=== PATIENT | male | born 1970 | race Caucasian/White ===

== ENCOUNTER 2017-06-03 08:16 | Inpatient (IN) | payer BC, OTHER ==
[~2017-06-03] VITALS: Ht 172.7 cm; Wt 68.0 kg
--- NOTE | 2017-06-03 12:10 | NUR ---
PRE-ASSESSMENT: Pre-Assessment done at intake office, client is a/o to name, place, and situation, he presents with flat affect, anxious mood, smell of alcohol on breath, client stated, "I just had two beers , maybe like 4-5 hours ago." client noted with dry lips, pale skin, hollow cheeks, client stated, "I have lost like 10 pounds over a month, I am just not hungry." Client has difficulty concentrating, he reports nausea, abdominal cramps, chills, and feeling of uneasiness. Client avoids eye contact, soft speech, he has difficulty staying still, keeps crossing and uncrossing his legs. T 98, RR 18, BP 120/79, HR 89, spO2 @ 98% on RA, Pain 0/10. He is fully ambulatory. He denies any allergies; he denies any withdrawal-induced seizure, but reports a hx of withdrawal-induced delirium (05/30/17). PMH: Anxiety, Depression, Osteonecrosis of left hip (2010), Hypertension (2011). Past Surgery hx: Tonsillectomy, Appendectomy. Medications taken at home Amlodipine Besylate 5mg PO daily Protocol regarding vitals Q4H, UDS, blood work, and controlled substances discuss with client, he verbalized understanding. PCP: Wild Cain
--- NOTE | 2017-06-03 12:21 | NUR ---
Admissions Note 47 year old male admitted to [facility] for withdrawal from alcohol. Client stated, "I am losing my marriage." Client is oriented to unit, educated about protocols and how to work TV and call light in his room. Weight: 150 pounds. Height: 5'8" CIWA: 19 Client is pacing in his room, combing his hair with both hands, clammy skin. Skin intact to touch. Bilateral lung clear on auscultation, abdomen soft, non-tender, no edema noted. Clients voice is soft, he avoids eye contact. Client has NKA. Regular diet ordered. Full code status ordered. Client denies Substance history First time used at 15 y/o, he now consumes alcohol (beer) 6-12 cans (12oz) PO daily for the past 28 years, last used 2 (12oz) cans of beer, 4-5 hours prior to admission. Marijuana 0.5gm smoked for the past 32 years last time used 06/03/17, a couple of puffs. Client denies any history of seizures, but reports history of withdrawal-induced delirium. LBM was 06/02/17, medium/brown/soft. He refuses PNA/FLU vaccine stating, "I don't believe they work." He gives verbal consent for HIV. Client states that he lives with his and 14 year-old daughter. He reports a prior treatment four year ago, he can not remember the name of the place, but he was there for 5 days. He did not go into treatment after that and started drinking right after discharge, client stated, "Maybe, that was my mistake, not going into a 30 day treatment." His longest period of sobriety is for 5 days on April 2017. Client denies ant hx of suicide attempt or 5150. Dr Esquivel notified of admission. Urine not collected yet. All safety measures instituted. Univeral precaution. Call light within reach. Will continue to monitor.
[2017-06-03] MEDS ORDERED: LOPERAMIDE HCL 2 MG CAPSULE PO PRN ×2 (12:30)
[2017-06-03] MEDS ORDERED: MAGNESIUM HYDROXIDE 30 ML LIQUID UDC PO PRN (12:30)
[2017-06-03] MEDS ORDERED: IBUPROFEN 400 MG TABLET PO PRN (12:30)
[2017-06-03] MEDS ORDERED: ONDANSETRON ODT 4 MG TAB.RAPDIS SL PRN (12:30)
[2017-06-03] MEDS ORDERED: MIRALAX 17 GM POWD.PACK PO PRN (12:30)
[2017-06-03] MEDS ORDERED: LORAZEPAM 2 MG/1 ML VIAL IM PRN (12:30)
[2017-06-03] MEDS ORDERED: MAG HYDROX/AL HYDROX/SIMETH 30 ML LIQUID UDC PO PRN (12:30)
[2017-06-03] MEDS ORDERED: ONDANSETRON 4 MG/2 ML VIAL IM PRN (12:30)
[2017-06-03] MEDS ORDERED: ACETAMINOPHEN 325 MG TABLET PO PRN (12:30)
[2017-06-03] MEDS ORDERED: LORAZEPAM 1 MG TABLET PO PRN ×2 (12:30)
[2017-06-03] MEDS ORDERED: AMLO5TAB2 PO (12:46)
[2017-06-03] MEDS ORDERED: THIAMINE HCL 200 MG/2 ML VIAL IM ONE (12:49)
[2017-06-03 13:03] LABS: BASOPHILS # (AUTO) 0.1 K/uL (0.0-8.0); BASOPHILS % (AUTO) 0.9 % (0.0-2.0); EOSINOPHILS # (AUTO) 0.1 K/uL (0.0-0.7); HEMATOCRIT 44.2 % (36.7-47.1); HEMOGLOBIN 15.2 g/dL (12.5-16.3); LYMPHOCYTES # (AUTO) 2.7 K/uL (20.0-40.0); LYMPHOCYTES % (AUTO) 40.1 % (20.5-51.5); MEAN CORPUSCULAR HEMOGLOBIN 30.4 uug (23.8-33.4); MEAN CORPUSCULAR HGB CONC 35 g/dL (32.5-36.3); MEAN CORPUSCULAR VOLUME 88.2 fL (73.0-96.2); MONOCYTES # (AUTO) 0.5 K/uL (2.0-10.0); MONOCYTES % (AUTO) 7.6 % (0.0-11.0); NEUTROPHILS # (AUTO) 3.4 K/uL (1.8-8.9); NEUTROPHILS % (AUTO) 50.4 % (38.5-71.5); PLATELET COUNT (AUTO) 209 K/uL (152-348); RED BLOOD CELL COUNT(AUTO) 5.01 MIL/uL (4.06-5.63); WHITE BLOOD COUNT (AUTO) 6.6 K/uL (3.6-10.2)
[2017-06-03] MEDS: LORAZEPAM 1 MG TABLET PO SCH ×3 (13:16→21:09)
[2017-06-03 13:30] LABS: BILIRUBIN,TOTAL 0.2 mg/dL (0.2-1.0); CREATININE 0.8 mg/dL (0.6-1.3); MAGNESIUM 2.2 mg/dL (1.8-2.4); POTASSIUM 3.7 mmol/L (3.5-5.1)
[2017-06-03 16:39] LABS: *AMPHETAMINE, URINE NEGATIVE (NEGATIVE); *BARBITURATE, URINE NEGATIVE (NEGATIVE); *CANNABINOID, URINE POSITIVE (NEGATIVE); *COCCAINE, URINE NEGATIVE (NEGATIVE); *OPIATE, URINE NEGATIVE (NEGATIVE); *PHENCYCLIDINE SCREEN,URINE NEGATIVE (NEGATIVE)
[2017-06-03 16:58] VITALS: BP 135/95
--- NOTE | 2017-06-03 19:09 | NUR ---
END OF SHIFT Endorsed client to incoming nurse, client is a/o x 4, he is not compliant with group therapy due to withdrawal symptoms. Client remains isolated in his room for the most part, he continues to present with anxious mood, flat affect, nausea, tremors, flushed face, sweats, cold/chills, decreased appetite, and fatigue. Client consumed ~ 50 % of meal. Adequate PO fluid intake 855mL, void x 2, stool x1. Last CIWA 19 @ 1600. Call light within reach.
--- NOTE | 2017-06-03 19:30 | NUR ---
START OF SHIFT Received 47 year old male patient for ETOH withdrawal. Pt is alert and oriented x4. He started his 5 day Ativan taper today and tolerating well. Pt is noted with anxiety,irritability, restlessness, agitation, fine tremors, sensitivity to light and sound, flushed face, chills and sweats. Per endorsement, he did not receive or request PRN medications. Last CIWA:19 at 1700. Breathing is even and unlabored, safety measures in place. Will continue to monitor.
[2017-06-03 20:00] VITALS: BP 127/87
[2017-06-03 23:45] VITALS: BP 151/97
[2017-06-03] MEDS: CLONIDINE HCL 0.1 MG TABLET PO PRN (23:50)
--- NOTE | 2017-06-03 23:50 | NUR ---
PRN CLONIDINE Pt noted with increased BP of 151/97, HR:78. PRN Clonidine administered as ordered. Breathing even and unlabored, safety measures in place. Will continue to monitor effectiveness.
[2017-06-04 00:50] VITALS: BP 132/85
--- NOTE | 2017-06-04 00:50 | NUR ---
PRN REASSESSMENT Medication effective. BP:132/85. Will continue to monitor. Addendum: 06/04/17 at 0710 by ASHLY HIGHTOWER RN HR:75
[2017-06-04 04:00] VITALS: BP 113/76
--- NOTE | 2017-06-04 07:07 | NUR ---
END OF SHIFT Pt is a 47 year old male patient for ETOH withdrawal. He remains alert and oriented x4. He continues on a 5 day Ativan taper today and is tolerating well. Pt was noted with anxiety, restlessness, agitation, fine tremors, flushed face, chills and sweats. He received PRN Clonidine at 2350 for increased BP. Medication was effective. He slept a total of 7 hrs, Intake:796mL, Void: x1, BM:0, CIWA: 10 at 0000. Breathing is even and unlabored, safety measures in place. Will endorse to AM shift.
--- NOTE | 2017-06-04 07:35 | NUR ---
START OF SHIFT Endorse rdvc from ongoing nurse, client is a/o to name, place, and situation. Client presents with anxious mood, flat affect, flushed face, dry lips, unshaven, red, teary eyes, runny nose, tremors, obvious sweating on forehead. He reports nausea, headache, stomach cramps, no appetite, panic feeling, light and noise bothers him, pins and needle feeling on legs. Encourage client to increase PO fluid intake as tolerated for rehydration and to facilitate detox. Encourage client to attend group therapy to learn skills to maintain sober. Client is on second of 5 day Ativan taper. Last CIWA 10 @ 2400. PRN Clonidine for BP 151/97, decreased to 132/85. Seizure precautions rendered. Call light within reach.
[2017-06-04 08:11] LABS: HEPATITIS B SURFACE AG Negative (Negative)
[2017-06-04 08:32] VITALS: BP 107/77
[2017-06-04] MEDS: MULTIVITAMINS,THERAPEUTIC TABLET PO SCH (08:42)
[2017-06-04] MEDS: LORAZEPAM 1 MG TABLET PO SCH ×2 (08:42→12:27)
[2017-06-04] MEDS: FOLIC ACID 1 MG TABLET PO SCH (08:43)
[2017-06-04] MEDS: THIAMINE HCL 100 MG TABLET PO SCH (08:43)
[2017-06-04] MEDS: AMLODIPINE 5MG PO SCH (08:44)
[2017-06-04] MEDS ORDERED: TUBERCULIN,PURIF.PROT.DERIV. 5 TU/0.1 ML TEST ID ONE (09:00)
[2017-06-04 12:22] VITALS: BP 120/82
[2017-06-04 16:50] VITALS: BP 128/98
[2017-06-04] MEDS ORDERED: LORAZEPAM 1 MG TABLET PO SCH ×2 (17:00→21:00)
--- NOTE | 2017-06-04 17:00 | NUR ---
called to inquiry about current state of , and to let him know that she loves him. Client notified.
--- NOTE | 2017-06-04 19:15 | NUR ---
END OF SHIFT Endorse client to incoming nurse, client is a/o x 4, Client continues to present with anxious mood, flat affect, flushed face, tremors, headache, stomach cramps, no appetite, panic feeling, and restless legs. Client consumes ~50 of meals. Adequate PO fluid intake 2191mL, void x 5, stool x 1. Last CIWA 17 @ 1600. Seizure precautions rendered. Call light within reach.
--- NOTE | 2017-06-04 19:15 | NUR ---
START OF SHIFT NOTE: Endorsed a 47 year old male presented for ETOH/"Beer" withdrawal, continues 5 day Ativan taper, which tolerated well. Patient is alert and oriented x4, resting on the bed. Patient appears unwashed , uncombed hair, and undernourished. Patient is sad with poor eye contact. Last CIWA=17 @1600: Patient presented with anxiety, agitation, tremors, restlessness, nervousness, sweats, headache, panic feelings, stomach cramps, flushed face, and fatigue. No PRN Medications given throughout the day per day shift nurse report. Patient encouraged to express his feelings. Encouraged to fluids intake as tolerated. All needs met. Safety measures in place: Call light within reach, bed is locked and in lowest position, padded bed rails up bilaterally. Patient endorsed by outgoing day shift nurse. Report received. Will continue to monitor closely.
[2017-06-04 20:00] VITALS: BP 137/90
[2017-06-05] VITALS: BP 114/86
[2017-06-05 04:00] VITALS: BP 103/74
--- NOTE | 2017-06-05 06:57 | NUR ---
END OF SHIFT NOTE: A 47 year old male presented for Alcohol(Beer) withdrawal, continues 5 Day Ativan Taper. He is tolerated well. Patient remains compliant with treatment, medications, and diet regime. Patient noted disheveled, unkempt,and uncombed. His clothes are dirty and patient refused to change them. The patient was educated in safety and hygiene care. The patient was encouraged to independently perform hygiene care. CIWA=12 @2000, CIWA=9 @0000. Last CIWA=6@0400. Patient presented with anxiety, agitation, c/o restlessness, fatigue, abdominal cramps, sweating, and tremors. No PRN Medications given during shift. Calm and safety environment with minimized noises was provided. Patient slept 9 hours, intake 1,350 ml, voided x3. Calm environment and minimized noises was provided. All needs met. Safety measures in the place: Call light within reach, bed in the lowest position and locked, padded rails up x2. Patient endorsed to day shift nurse.
--- NOTE | 2017-06-05 07:44 | NUR ---
START OF SHIFT PT IS A 47 Y/O M ADMITTED FOR ETOH W/D. PT IS ON A 5 DAY ATIVAN TAPER. LAST CIWA 6. RECEIVED PT LAYING IN BED, DISHEVELED, A/OX4, RESPIRATIONS EVEN AND UNLABORED. PT PRESENTS ANXIOUS MOOD, RESTLESSNESS, SWEATING, FACIAL FLUSHING, AND TREMORS. PT REPORTS HAVING SENSITIVITY TO LIGHT. ENCOURAGED PT TO INCREASE FLUIDS TO FACILITATE IN DETOX. SIDE RAILS UPX2, BED IS IN LOWEST POSITION. CALL LIGHT WITHIN REACH. WILL CONTINUE TO MONITOR.
[2017-06-05 08:00] VITALS: BP 119/80
[2017-06-05] MEDS: THIAMINE HCL 100 MG TABLET PO SCH (08:40)
[2017-06-05] MEDS: AMLODIPINE 5MG PO SCH (08:40)
[2017-06-05] MEDS: FOLIC ACID 1 MG TABLET PO SCH (08:40)
[2017-06-05] MEDS: MULTIVITAMINS,THERAPEUTIC TABLET PO SCH (08:40)
[2017-06-05] MEDS ORDERED: LORAZEPAM 1 MG TABLET PO SCH ×3 (09:00→21:00)
[2017-06-05 12:00] VITALS: BP 149/98
[2017-06-05] MEDS: CLONIDINE HCL 0.1 MG TABLET PO PRN (12:21)
--- NOTE | 2017-06-05 12:21 | NUR ---
PRN CLONIDINE 0.1 MG PO PRN GIVEN FOR 149/98. PT HR IS 92. PT REPORTS HAVING ANXIETY DUE TO SPEAKING IN GROUP. WILL MONITOR FOR EFFECTIVENESS.
--- NOTE | 2017-06-05 13:32 | NUR ---
REASSESSMENT BP: 127/81, HR; 82. WILL CONTINUE TO MONITOR.
[2017-06-05 16:25] VITALS: BP 115/84
--- NOTE | 2017-06-05 16:40 | NUR ---
Therapist prompted client to attend daily group sessions. Client stated that he would make an attempt to go to the next group session.
--- NOTE | 2017-06-05 19:03 | NUR ---
END OF SHIFT LAST 12 CIWA @1600. CLONIDINE GIVEN FOR BP 147/97, EFFECTIVE UPON REASSESSMENT:127/81. PT PARTICIPATED IN ALL GROUPS AND ACTIVITIES. PT IS TOLERATING ATIVAN TAPER WELL. SAFETY MEASURES IN PLACE. WILL GIVE ENDORSEMENT TO BREAKER UNIT ASSEMBLER.
--- NOTE | 2017-06-05 19:31 | NUR ---
END OF SHIFT LAST CIWA @1600. CLONIDINE GIVEN FOR BP 147/97, EFFECTIVE UPON REASSESSMENT:127/81. PT PARTICIPATED IN ALL GROUPS AND ACTIVITIES. PT IS TOLERATING ATIVAN TAPER WELL. SAFETY MEASURES IN PLACE. WILL GIVE ENDORSEMENT TO SUPERVISOR STITCHING DEPARTMENT.
--- NOTE | 2017-06-05 19:31 | NUR ---
START OF SHIFT NOTE: Presented a 47 year old male admitted for Alcohol/"Beers" withdrawal. He is continues 5 day Ativan taper which tolerated well. Patent reports NKA, is on Full Code, Regular Diet, is on Fall and Seizures Precautions. Patient denies History of withdrawal-induced seizures. Patient denies SI/HI. Patient is alert and oriented x4. Last CIWA=12 @1600 per outgoing day shift nurse report: Patient presented with moderate withdrawal symptoms of anxiety, agitation, nervousness, tremors, sweating, and fatigue. PRN Clonidine PO administrated for BP 149/98 @1221 was effective per day shift nurse report. VSWNL @1600. Patient remains compliant with treatment, medications and diet regime. Encouraged to fluid intake as tolerated. Encourage to attended groups activities. All needs met. Safety measures in place: Call light within reach, bed is locked in lowest position, padded bed rails up bilaterally. Patient endorsed by day shift nurse. Will continue to monitor closely.
[2017-06-05 20:00] VITALS: BP 133/92
[2017-06-05] MEDS: GABAPENTIN 300 MG CAPSULE PO SCH (20:39)
[2017-06-06] VITALS (7 sets, daily range): BP systolic 110–138; BP diastolic 80–92
--- NOTE | 2017-06-06 06:52 | NUR ---
END OF SHIFT NOTE Patient is a 47 year old male admitted continues 5 Day Ativan Taper for ETOH(Beer) withdrawal. Patient remains compliant with treatment, medications, and diet regime. Withdrawal symptoms was closely monitored. Patient is alert and oriented x4. He is reports NKA, is on Full Code, Regular Diet, is on Fall and Seizures Precautions. Patient denies History of withdrawal-induced seizures. Patient denies SI/HI. Patient appears worry with poor eye contact, unshaved. Patient educated in safety and hygiene care. Encouraged to independently perform hygiene care. CIWA=13 @2000, CIWA=8 @0000, and last CIWA=6 @0400. During my shift patient presented anxious, agitated, nervousness, with tremors, sweating, fatigue, and restlessness. Encouraged to use of Relaxation Techniques: deep breathing exercises, guided imagery, visualization. Encouraged to increase oral fluid intake as tolerated. Encouraged to attend group activities. No PRN Medications given during shift. Calm and safety environment with minimized noises was provided. Patient slept 7 hours, intake 1,196 ml, voided x2. Calm environment and minimized noises was provided. All needs met. Safety measures in the place: Call light within reach, bed in the lowest position and locked, padded rails up x2. Patient endorsed to day shift nurse
--- NOTE | 2017-06-06 07:45 | NUR ---
START OF SHIFT Received report from restaurant worker nurse. Pt is lying in bed resting and easily arousable. He is a 47 yo male admitted to [facility] on 06/03 for ETOH dependence. He continues on a 5 day Ativan taper. Pt's appearance is disheveled. He has poor eye contact with depressed mood, facial flushing, and moist skin. He appears older than stated age. Pt states that he is worried about issues at home. Provided support and encouragement. Safety measures in place.
[2017-06-06] MEDS: GABAPENTIN 300 MG CAPSULE PO SCH ×2 (08:59→21:18)
[2017-06-06] MEDS: FOLIC ACID 1 MG TABLET PO SCH (08:59)
[2017-06-06] MEDS: LORAZEPAM 1 MG TABLET PO SCH ×2 (08:59→21:18)
[2017-06-06] MEDS: AMLODIPINE 5MG PO SCH (08:59)
[2017-06-06] MEDS: THIAMINE HCL 100 MG TABLET PO SCH (09:00)
[2017-06-06] MEDS: MULTIVITAMINS,THERAPEUTIC TABLET PO SCH (09:00)
[2017-06-06] MEDS ORDERED: DIPH50CA37 PO (11:09)
[2017-06-06] MEDS ORDERED: GABA-534 PO (11:09)
[2017-06-06] MEDS ORDERED: CLON0.1T14 PO (11:09)
[2017-06-06] MEDS ORDERED: AMLO5TAB2 PO (11:09)
[2017-06-06] MEDS: CLONIDINE HCL 0.1 MG TABLET PO PRN (12:50)
--- NOTE | 2017-06-06 12:50 | NUR ---
PRN Clonidine Pt's B/P 138/92 and HR 100. He reports "nervous energy". Encouraged relaxation. PRN Clonidine administered.
--- NOTE | 2017-06-06 13:50 | NUR ---
PRN Clonidine reassessment PRN Clonidine effective. Pt's B/P 120/80 and HR 81.
--- NOTE | 2017-06-06 18:55 | NUR ---
START OF SHIFT NOTE: Endorsed 47 year old male admitted for Alcohol/"Beers" withdrawal, continues 5 day Ativan taper which tolerated well. Withdrawal symptoms closely monitored. Patient remains compliant with treatment, medications, and diet regime. Patent reports LORENA, is on Full Code, Regular Diet, is on Fall and Seizures Precautions. Patient reports History of withdrawal-induced Delirium, Anxiety, Depression, HTN, Osteonecrosis of Left Hip. Patient denies SI/HI. Patient is alert and oriented x4. Last CIWA=4 @1630 per outgoing day shift nurse report: Patient presented with anxiety, agitation, nervousness, tremors, sweating, and fatigue. PRN Clonidine 0.1 mg 1 tab administrated for Blood Pressure 138/92 @1250 was effective per day shift nurse report. Last BP: 134/90 @1630. Encouraged to fluid intake as tolerated. Encourage to attended groups activities. All needs met. Safety measures in place: Call light within reach, bed is locked in lowest position, padded bed rails up bilaterally. Patient endorsed by day shift nurse. Will continue to monitor closely.
--- NOTE | 2017-06-06 18:55 | NUR ---
END OF SHIFT Report provided to operations supervisor 2nd shift nurse. Pt is attending a group meeting. He is a 47 yo male admitted to [facility] on 06/03 for ETOH dependence. He continues on a 5 day Ativan taper. Pt was preoccupied with outside issues and has racing thoughts. B/P elevated. PRN Clonidine administered. Last CIWA 4. He drank 2,600mL. Pt is cooperative with treatment. Safety measures in place.
[2017-06-07] VITALS: BP 117/74
[2017-06-07] MEDS: diphenhydrAMINE 50 MG CAPSULE PO PRN ×2 (01:46→23:22)
--- NOTE | 2017-06-07 01:46 | NUR ---
PRN BENADRYL 50 MG 1 CAP PO ADMINISTRATION Patient c/o insomnia. PRN Benadryl 50 mg 1 cap PO administrated with full glass of water as ordered. Patient tolerated well. All needs met. Safety measures on place. Call light within reach, bed in lowest position and locked, padded rails up bilaterally. Will continue to monitor closely.
--- NOTE | 2017-06-07 02:46 | NUR ---
RE-ASSESSMENT Patient is sleeping. RR 14. Respirations even and unlabored. PRN Benadryl 50 mg 1 cap PO administrated for insomnia @0146 was effective. All needs met. Safety measures on place. Call light within reach, bed in lowest position and locked, padded rails up bilaterally. Will continue to monitor closely.
[2017-06-07 04:00] VITALS: BP 118/76
--- NOTE | 2017-06-07 06:45 | NUR ---
END OF SHIFT NOTE 47 year old male patient is alert and oriented x4. He is continues 5 Day Ativan Taper for Alcohol/Beer withdrawal. Patient remains compliant with treatment, medications, and diet regime. Withdrawal symptoms was closely monitored. CIWA=9 @2000, CIWA=11 @0000. Last CIWA=7 @0400. Patient noted anxious, agitated, nervousness, with tremors, sweating, fatigue, c/o insomnia, and restlessness. PRN Benadryl 50 mg 1 capsule PO administrated for insomnia @0146 was effective. Encouraged to increase oral fluid intake as tolerated. Encouraged to attend group activities. Calm and safety environment with minimized noises was provided. Patient slept 6 hours, intake 1,100 ml, voided x3, stool x1. Calm environment and minimized noises was provided. All needs met. Safety measures in the place: Call light within reach, bed in the lowest position locked, padded rails up x2. Patient endorsed to day shift nurse.
--- NOTE | 2017-06-07 06:51 | NUR ---
END OF SHIFT NOTE Endorsed 21 year old male continues 5 Day Ativan Taper for Alcohol/Whiskey withdrawal. Withdrawal symptoms was closely monitored. Patient remains compliant with treatment, medications, and diet regime. Patient is alert and oriented x4. Patient appears sad, worry, unshaven, disheveled, unkempt, and uncombed. Patient educated in safety and hygiene care. Encouraged to independently perform hygiene care. CIWA=9 @2000, CIWA=11 @0000. The most recent CIWA=7 @0400. Patient presented anxious and agitated, c/o nervousness, tremors, sweating, and restlessness. No PRN Medications given last requirements engineer. Encouraged to fluids intake as tolerated. Encouraged to attend group activities. Safe and calm environment with minimized noises was provided. Patient slept 8 hours, intake 1,355 ml, voided x2. All needs met. Safety measures in the place by hospital policy: Call light within reach, bed in the lowest position and locked, padded rails up x2. Patient endorsed to day shift nurse.
--- NOTE | 2017-06-07 07:45 | NUR ---
START OF SHIFT Endorse rcvd from ongoing nurse, client is a/o x4, client is outside of his room, he presents with anxious mood, flat affect, flushed face, dry lips, unshaven, disheveled, tremors felt not observed. He reports feeling very anxious, like a panic feeling, nausea, decreased in appetite, stomach cramps, restless legs, and fatigue. Encourage client to increase PO fluid intake as tolerated to facilitate detox. Encourage client to attend group therapy to learn skills to maintain sobriety. Last of 5 day Ativan taper. Last CIWA 7 @ 0400. PRN Benadryl 50mg PO for inability to sleep, he slept 6 hrs. LBM 06/06/17. Seizure precautions rendered. Call light within reach.
[2017-06-07 08:04] VITALS: BP 112/77
[2017-06-07] MEDS: GABAPENTIN 300 MG CAPSULE PO SCH ×2 (08:29→21:08)
[2017-06-07] MEDS: FOLIC ACID 1 MG TABLET PO SCH (08:29)
[2017-06-07] MEDS: THIAMINE HCL 100 MG TABLET PO SCH (08:29)
[2017-06-07] MEDS: MULTIVITAMINS,THERAPEUTIC TABLET PO SCH (08:29)
[2017-06-07] MEDS: AMLODIPINE 5MG PO SCH (08:31)
[2017-06-07] MEDS ORDERED: LORAZEPAM 1 MG TABLET PO SCH (09:00)
[2017-06-07 12:00] VITALS: BP 133/93
[2017-06-07 16:55] VITALS: BP 130/87
--- NOTE | 2017-06-07 19:01 | NUR ---
END OF SHIFT Endorse client to incoming nurse, client is room, he is a/o x4, he continues to present with anxious mood, flat affect, tremors felt not observed. nausea, decreased in appetite, stomach cramps, restless legs, and fatigue. Adequate PO fluid intake 1200mL, void x 6, stool x 1. Client consumed ~75% of meals. Client is compliant with group therapy. Client completed 5 day Ativan taper. Client is schedule for discharge tomorrow to [facility] to continue with his treatment. Last CIWA 9 @ 1600. Seizure precautions rendered. Call light within reach.
--- NOTE | 2017-06-07 19:25 | NUR ---
START OF SHIFT Patient is a 47-year-old male admitted on 06/03/17 for ETOH(beer) withdrawal. Patient completed a 5-day Ativan taper, tolerated well. Patient's last CIWA was 9 per day shift nurse. Patient received no PRNs during day shift. Upon assessment, patient is awake, alert and oriented x4. Patient's belongings are scattered about the room, bed unmade. Patient is scheduled for discharge tomorrow and is verbalizing feelings of anxiety and worry. SN listened to patient and provided emotional support, with therapeutic communication. Patient states he has had difficulty sleeping last night and is requesting sleep aid later this evening. Patient is on fall and seizure precautions with no history of seizure. Safety measures in place, bed locked in low position, side rails up x2, call light within reach. Will continue to monitor.
[2017-06-07 20:00] VITALS: BP 136/100
[2017-06-07] MEDS: CLONIDINE HCL 0.1 MG TABLET PO PRN (21:08)
--- NOTE | 2017-06-07 21:08 | NUR ---
PRN CLONIDINE Patient has elevated BP of 136/100, HR 93. PRN Clonidine given PO. Safety measures in place, side rails up x2, bed locked in low position, call light within reach. Will monitor for effectiveness.
--- NOTE | 2017-06-07 22:08 | NUR ---
PRN CLONIDINE REASSESSMENT Patient has decreased BP 114/78; PRN Clonidine effective. Safety measures in place, call light within reach. Will continue to monitor.
--- NOTE | 2017-06-07 23:22 | NUR ---
PRN BENADRYL Patient requests sleep aid due to inability to fall asleep. PRN Benadryl given PO. Safety measures in place, side rails up x2, bed locked in low position, call light within reach. Will monitor for effectiveness.
--- NOTE | 2017-06-08 | NUR ---
VITALS REFUSED, CIWA DEFERRED Patient refused midnight vitals, trying to fall asleep and does not wish to be disturbed. Patient is in bed with eyes closed; CIWA deferred, to be assessed while patient is awake. Safety measures in place, call light within reach. Will continue to monitor.
--- NOTE | 2017-06-08 00:22 | NUR ---
PRN BENADRYL REASSESSMENT Patient is in bed with eyes closed, respirations even and unlabored, 16/min. PRN Benadryl effective. Safety measures in place, side rails up x2, bed locked in low position, call light within reach. Will continue to monitor.
--- NOTE | 2017-06-08 04:00 | NUR ---
VITALS REFUSED, CIWA DEFERRED Patient refused 4AM vitals. Patient is in bed with eyes closed; CIWA deferred, to be assessed while patient is awake. Safety measures in place, call light within reach. Will continue to monitor.
--- NOTE | 2017-06-08 07:15 | NUR ---
END OF SHIFT Patient is a 47-year-old male admitted on 06/03/17 for ETOH(beer) withdrawal. Patient completed a 5-day Ativan taper, tolerated well. Patient's last CIWA was 8. Patient received PRN Benadryl PO for difficulty sleeping and PRN Clonidine for elevated BP; both were effective. Patient slept for 7 hours, total intake of 888mL, void x3, stool x1. Patient is scheduled for discharge today. Patient is on fall and seizure precautions with no history of seizure. Safety measures in place, bed locked in low position, side rails up x2, call light within reach. Will endorse to day shift.
--- NOTE | 2017-06-08 07:46 | NUR ---
START OF SHIFT Client is in room, he is a/o x 4, client is making his bed, he has difficulty staying still, he presents with anxious mood, flat affect, and flushed face. Client reports feeling anxious because he will be leaving today. He stated, "I am not sure what to expect of the new place I am going, I felt better everyday with the care I got here here, and now my expectations of good care are high." Client denies any nausea, vomiting or diarrhea. Client denies any suicidal ideations, homicidal ideations. Educate client on discharge instructions, he verbalized understanding. Client is schedule for discharge this am to [facility]. Client completed 5 day Ativan taper to help manage alcohol withdrawal symptoms. Last CIWA 8 @ 1999. Seizure precautions rendered. call light within reach.
[2017-06-08] MEDS: MULTIVITAMINS,THERAPEUTIC TABLET PO SCH (08:35)
[2017-06-08] MEDS: THIAMINE HCL 100 MG TABLET PO SCH (08:35)
[2017-06-08] MEDS: FOLIC ACID 1 MG TABLET PO SCH (08:35)
[2017-06-08] MEDS: AMLODIPINE 5MG PO SCH (08:35)
[2017-06-08] MEDS: GABAPENTIN 300 MG CAPSULE PO SCH (08:35)
[2017-06-08 08:43] VITALS: BP 133/89
--- NOTE | 2017-06-08 09:30 | NUR ---
Discharge note Client was admitted for alcohol withdrawal. Client has a recent CIWA of 4. Client VS are WNL. LBM 06/08/17. Client denies any SI/HI. Client verbalized his understanding of the discharge instructions. Client has no complaints at this time. Client discharge instructions, prescriptions, medications and all belongings returned to client. All needs addressed at this time. Client ambulated off of unit, client left facility via [facility] for [facility].
== END 2017-06-08 09:30 | disposition other institution (70) | DRG 895 ==
LOC: SRC 11:36
PROVIDERS: ADMIT Internal Medicine; ATTEND Internal Medicine
PROC: HZ2ZZZZ Detoxification Services for Substance Abuse Treatment (ICD-10-PCS; principal; 2017-06-03)
PROC: HZ31ZZZ Individual Counseling for Substance Abuse Treatment, Behavioral (ICD-10-PCS; 2017-06-05)
PROC: HZ41ZZZ Group Counseling for Substance Abuse Treatment, Behavioral (ICD-10-PCS; 2017-06-05)
DX: F10.232 Alcohol dependence with withdrawal with perceptual disturbance (principal); I15.9 Secondary hypertension, unspecified; K70.10 Alcoholic hepatitis without ascites; M87.80 Other osteonecrosis, unspecified bone; F17.211 Nicotine dependence, cigarettes, in remission; F41.9 Anxiety disorder, unspecified; Y90.6 Blood alcohol level of 120-199 mg/100 ml; Z81.1 Family history of alcohol abuse and dependence; F12.20 Cannabis dependence, uncomplicated; F32.9 Major depressive disorder, single episode, unspecified
CPT/HCPCS: 36415; 70030-TC; 80307; 80349; 83735; 85025; 86580; 86592; 86705; 86803; 87340; 87806; G0480; J3411; Q0163